=== PATIENT | male | born 1955 | race Caucasian/White ===

== ENCOUNTER → 2017-11-13 | Outpatient (CLI) | payer OTHER ==
[~2017-11-13] MED LIST: AMLO-99 PO; ASPI-1441 PO; ENA10 PO; HYDR12.561 PO; IBUP200C74 PO; LEV125 PO; LEV88 PO; METO-231 PO; METO100T20 PO; METO200T12 PO; NO CURRENT MEDS; ROS10 PO; SIMV-44 PO
[2017-11-13 09:53] LABS: PLATELET COUNT, AUTOMATED 122 K/uL (150-450)
[2017-11-13 10:32] LABS: LDL CHOLESTEROL 37 mg/dl
== END ==
LOC: LAB 09:33
PROVIDERS: ATTEND Nurse Practitioner Psychiatric/Mental Health
DX: Z12.5 Encounter for screening for malignant neoplasm of prostate (principal); E03.9 Hypothyroidism, unspecified; E78.5 Hyperlipidemia, unspecified; I10 Essential (primary) hypertension
CPT/HCPCS: 36415; 82040; 82247; 82310; 82374; 82435; 82465; 82565; 82947; 83718; 84075; 84132; 84153; 84155; 84295; 84443; 84450; 84460; 84478; 84520; 85025

== ENCOUNTER → 2017-11-13 | Outpatient (CLI) | payer OTHER | LOC: LAB 09:31 | PROVIDERS: ATTEND Internal Medicine Cardiovascular Disease | DX: E03.9 Hypothyroidism, unspecified (principal); E78.00 Pure hypercholesterolemia, unspecified ==